=== PATIENT | male | born 1950 | race Caucasian/White ===

== ENCOUNTER 2017-06-05 15:48 | Inpatient (IN) | payer MEDICARE, MEDICAID ==
[2017-06-05 18:09] LABS: #Basophils 0.1 thou/uL (0.0-0.2); #Eosinphils 0.4 thou/uL (0.0-0.7); #Lymphocytes 2.6 thou/uL (1.20-3.40); #Monocytes 0.7 thou/uL (0.11-0.59); #Neutrophils 6.8 thou/uL (1.40-6.50); %Basophils 0.5 % (0.0-1.0); %Lymphocytes 24.4 % (21.0-51.0); %Monocytes 6.2 % (0.0-10.0); %Neutrophils 64.9 % (42.0-75.0); Mean Corpuscular HGB CONC 35.1 g/dL (32.0-36.0); Mean Corpuscular Volume 88.3 fl (80.0-94.0); Mean Platelet Volume 7.8 fL (7.4-10.4); Platelet Count 329 thou/uL (130-400); RBC Distribution Width 12.1 % (11.5-14.5); Red Blood Cell (RBC) Count 4.82 mill/uL (4.70-6.10); White Blood Cell (WBC) Count 10.5 thou/uL (4.8-10.8)
[2017-06-05 18:29] LABS: ALT (SGPT) 11 U/L (8-55); AST (SGOT) 14 U/L (5-34); Albumin 2.4 g/dL (3.4-4.8); Alkaline Phosphatase 120 U/L (40-150); Anion Gap 14 mmol/L (10-20); BUN (Urea Nitrogen) 46 mg/dL (8.4-25.7); Bilirubin, Total 0.2 mg/dL (0.2-1.2); Calc. Creatinine Clearance 0 mL/min (70-130); Calcium 8.2 mg/dL (7.8-10.44); Carbon Dioxide 22 mmol/L (23-31); Chloride 105 mmol/L (98-107); Estimated GFR-MDRD 19; Globulin 3.3 g/dL (2.4-3.5); Glucose 357 mg/dL (80-115); Potassium 4.1 mmol/L (3.5-5.1); Protein, Total 5.7 g/dL (5.8-8.1); Sodium 137 mmol/L (136-145)
[2017-06-05] MEDS ORDERED: Clindamycin/D5W 900 mg/50 ml Premix Bag ONE (19:22)
--- NOTE | 2017-06-05 19:27 | RAD ---
LEFT KNEE FOUR VIEW 06/05/17 HISTORY: Pain. COMPARISON: None. FINDINGS: There is a left below the knee amputation. The margins appear relatively sharp. Extensive vascular ca lcifications. Soft tissue swelling. Moderate osteoarthritic disease. IMPRESSION: Relatively sharp resection margins. No definite evidence of osteomyelitis, although MRI would be pernell mmended if there is clinical concern. POS: [facility]
[2017-06-05] MEDS ORDERED: Vancomycin HCl 1.5 GM in Sodium Chloride 0.9% 250 ML 300 ML IVPB SCH (19:30)
[2017-06-05] MEDS ORDERED: Piperacillin/Tazobactam 4.5 GM in Sodium Chloride 0.9% 100 ML IVPB SCH (19:30)
--- NOTE | 2017-06-05 19:31 | RAD ---
RIGHT TIBIA AND FIBULA TWO VIEW: 06/05/17 HISTORY: Pain and infection. COMPARISON: None.' FINDINGS: Extensive vascular calcifications lower extremity edema. No acute fracture or malalignment. IMPRESSION: Lower extremity swelling as well as what appears to be pitting edema as there is skin irregularly ant erior and posteriorly. Ulceration is also a possibility. POS: [facility]
[2017-06-05] MEDS ORDERED: Acetaminophen 325 MG TAB PO PRN (22:09)
[2017-06-05] MEDS ORDERED: Ondansetron HCl/PF 4 MG/2 ML Vial IVP PRN ×2 (22:09→22:28)
[2017-06-05] MEDS ORDERED: Ondansetron ODT 4 MG TAB SL PRN (22:09)
[2017-06-05] MEDS ORDERED: Calcium Carbonate 500 MG ChewTAB PO PRN (22:28)
[2017-06-05] MEDS ORDERED: Bisacodyl 5 MG TAB PO PRN ×2 (22:28)
[2017-06-05] MEDS ORDERED: Dextrose 5% in Water 1,000 ML IV PRN (22:28)
[2017-06-05] MEDS ORDERED: Diabetic Tussin 200 MG/10 ML UDCUP PO PRN (22:28)
[2017-06-05] MEDS ORDERED: Loratadine 10 MG TAB PO PRN (22:28)
[2017-06-05] MEDS ORDERED: traZODone HCl 50 MG TAB PO PRN (22:28)
[2017-06-05] MEDS ORDERED: Benzonatate 100 MG CAP PO PRN (22:28)
[2017-06-05] MEDS ORDERED: Senokot 8.6 MG TAB PO PRN ×2 (22:28)
[2017-06-05] MEDS ORDERED: Dextrose 50% Abboject 50 ML SYRINGE SLOW IVP PRN (22:28)
[2017-06-05] MEDS ORDERED: Mag-Al 1200 mg/1200 mg/30 ML UDCUP PO PRN (22:28)
[2017-06-05] MEDS ORDERED: traMADol HCl 50 MG TAB PO PRN (22:28)
[2017-06-05] MEDS ORDERED: Nitroglycerin 0.4 MG TAB (25 Tab Bottle) SL PRN (22:28)
[2017-06-05] MEDS ORDERED: cloNIDine 0.1 MG TAB PO PRN (22:28)
[2017-06-05] MEDS ORDERED: Lorazepam 1 MG TAB PO PRN (22:28)
[2017-06-05] MEDS: Sodium Chloride 0.9% 1,000 ML IV SCH (23:17)
[2017-06-05] MEDS: hydrALAZINE 20 MG/ML VIAL SLOW IVP PRN (23:26)
[2017-06-05] MEDS: Insulin Regular 300 UNITS/3 ML VIAL SC PRN (23:54)
[2017-06-06 00:14] VITALS: BMI 35.4
--- NOTE | 2017-06-06 00:19 | CON ---
DATE OF CONSULTATION: 06/05/2017 CONSULTING PHYSICIAN: Dr. Infante. REASON FOR CONSULTATION: Acute kidney injury on chronic kidney disease stage IV. REASON FOR ADMISSION: Leg infection. HISTORY OF PRESENT ILLNESS: This is a 66-year-old male with history of chronic kidney disease, morbi d obesity, hypertension, peripheral vascular disease, and type 2 diabetes, who came to the hospital w ith leg pain and was found to have a nonhealing ulcer. He does have left BKA. No fevers or chills, no nausea or vomiting reported. PAST MEDICAL HISTORY: Positive for chronic kidney disease, coronary artery disease, type 2 diabetes, hypertension, peripheral vascular disease. PAST SURGICAL HISTORY: Left BKA, coronary artery bypass graft. HOME MEDICATIONS: Amlodipine, metoprolol, Nexium, lisinopril, hydralazine, hydrochlorothiazide. ALLERGIES: No known drug allergies. SOCIAL HISTORY: No smoking, alcohol or illicit drugs abuse. FAMILY HISTORY: No history of any kidney disease. REVIEW OF SYSTEMS: The following complete review of systems was negative, unless otherwise mentioned in the HPI or below: Constitutional: Weight loss or gain, ability to conduct usual activities. Skin: Rash, itching. Eyes: Double vision, pain. ENT/Mouth: Nose bleeding, neck stiffness, pain, tenderness. Cardiovascular: Palpitations, dyspnea on exertion, orthopnea. Respiratory: Shortness of breath, wheezing, cough, hemoptysis, fever or night sweats. Gastrointestinal: Poor appetite, abdominal pain, heartburn, nausea, vomiting, constipation, or diarr hea. Genitourinary: Urgency, frequency, dysuria, nocturia. Musculoskeletal: Pain, swelling. Neurologic/Psychiatric: Anxiety, depression. Allergy/Immunologic: Skin rash, bleeding tendency. PHYSICAL EXAMINATION: GENERAL: This is a well-built male in no apparent distress. VITAL SIGNS: Temperature 98.1, pulse 75, respiratory 18, blood pressure 197/94. HEENT: Atraumatic, normocephalic. Oral mucosa is moist. NECK: Supple. CARDIOVASCULAR: S1, S2 heard. Rate and rhythm regular. RESPIRATORY: Clear. GASTROINTESTINAL: Abdomen is soft. MUSCULOSKELETAL: 1+ edema, left BKA. DERMATOLOGIC: Chronic skin lesions with purulent drainage on the right lower extremity. NEUROLOGIC: Alert, awake. PSYCHIATRIC: Mood and affect normal. LABORATORY DATA: Hemoglobin is 15.0, potassium is 4.1, BUN is 46, creatinine is 3.21. ASSESSMENT AND PLAN: 1. Acute kidney injury on chronic kidney stage IV. We will monitor, most likely from sepsis. Mary nue supportive care. 2. Edema, controlled. 3. Hypertension, stable. 4. Anemia, chronic. 5. Obesity. 6. Type 2 diabetes. 7. Continue supportive care, avoid nephrotoxins. We will follow. Thank you for the consult.
[2017-06-06] MEDS ORDERED: Piperacillin/Tazobactam 2.25 GM in Sodium Chloride 0.9% 100 ML IVPB SCH (03:00)
[2017-06-06 04:30] LABS: #Basophils 0.1 thou/uL (0.0-0.2); #Eosinphils 0.5 thou/uL (0.0-0.7); #Lymphocytes 2.3 thou/uL (1.20-3.40); #Monocytes 0.7 thou/uL (0.11-0.59); #Neutrophils 5.7 thou/uL (1.40-6.50); %Basophils 0.9 % (0.0-1.0); %Eosinophils 4.9 % (0.0-10.0); %Lymphocytes 25.4 % (21.0-51.0); %Monocytes 7.2 % (0.0-10.0); %Neutrophils 61.6 % (42.0-75.0); Hemoglobin 13.2 g/dL (14.0-18.0); Mean Corpuscular HGB CONC 35.2 g/dL (32.0-36.0); Mean Corpuscular Hemoglobin 30.9 pg (27.0-31.0); Mean Corpuscular Volume 87.7 fl (80.0-94.0); Mean Platelet Volume 8.2 fL (7.4-10.4); Platelet Count 285 thou/uL (130-400); RBC Distribution Width 12.2 % (11.5-14.5); Red Blood Cell (RBC) Count 4.27 mill/uL (4.70-6.10); White Blood Cell (WBC) Count 9.2 thou/uL (4.8-10.8)
[2017-06-06 04:44] LABS: Anion Gap 11 mmol/L (10-20); BUN (Urea Nitrogen) 43 mg/dL (8.4-25.7); Calc. Creatinine Clearance 37 mL/min (70-130); Calcium 7.8 mg/dL (7.8-10.44); Carbon Dioxide 23 mmol/L (23-31); Chloride 107 mmol/L (98-107); Estimated GFR-MDRD 20; Glucose 233 mg/dL (80-115); Potassium 3.4 mmol/L (3.5-5.1); Sodium 138 mmol/L (136-145)
[2017-06-06 04:48] LABS: Cardiac Risk 8.3 (Less than 4.5)
[2017-06-06] MEDS: Piperacillin/Tazobactam 2.25 GM in Sodium Chloride 0.9% 100 ML IVPB SCH ×3 (05:51→17:57)
[2017-06-06] MEDS: hydrALAZINE 20 MG/ML VIAL SLOW IVP PRN (05:51)
[2017-06-06] MEDS: Insulin Regular 300 UNITS/3 ML VIAL SC PRN ×3 (05:59→21:27)
[2017-06-06] MEDS ORDERED: Clindamycin/D5W 900 MG in Premix Bag 1 BAG IVPB SCH (06:00)
--- NOTE | 2017-06-06 06:32 | HP ---
DATE OF ADMISSION: 06/05/2017 PRIMARY CARE PHYSICIAN: Igor Rivera M.D. CHIEF COMPLAINT: Redness of the left leg stump. HISTORY OF PRESENT ILLNESS: Mr. Ortiz is a pleasant 66-year-old male with past medical history of un controlled diabetes, coronary artery disease, CO, carcinoid tumor as well as a left BKA in 2017, who presented to the emergency room with above-mentioned complaint. History is mainly obtained by the will orozco himself and electronic medical records have been reviewed. The patient underwent a left BKA for diabetic foot infection in 05/[address] Reyna. He reports that he went to get his prosthesis set up yesterday, but was sent back because his left lo wer extremity stump was red. The patient himself cannot feel any pain and called his primary care ph ysician this morning who told him to come to the emergency room. In the emergency room, he was found to have left lower extremity erythema and also right lower extrem ity ashby wounds. He reported that his cat has scratched him about 3 months ago and since then the [facility] lower extremity wounds have gotten worse. His also thinks that he might have a piece of gla ss stuck in his right foot. He underwent x-rays of the tibia and fibula of the right leg, which shows soft tissue swelling with p ossible ulceration, but no definitive fractures. The knee and stump x-ray of the left lower extremit y is negative for any significant evidence of osteomyelitis. He was treated empirically with IV anti biotics, namely vancomycin, Zosyn, and clindamycin and is now being admitted for possible stump infec tion and cellulitis as well as right lower extremity ulcers and wound infection. Cultures are obtain ed in the emergency room. He is otherwise hemodynamically stable. He also endorses diarrhea for the last 2 days. He takes Pepto-Bismol on a daily basis. He denies an y blood in his stools. He denies any nausea, vomiting or abdominal pain. He denies any similar symp toms in his . No fever or chills. No recent antibiotic use. PAST MEDICAL HISTORY: 1. Diabetes mellitus type 2. 2. Coronary artery disease. 3. Hypertension. 4. Dyslipidemia. 5. History of skin cancer on the left lower extremity, status post surgery. 6. Chronic kidney disease stage 3. 7. Peripheral vascular disease with gangrene of the left foot and status post amputation with a vent ral infection of the left leg, status post left BKA. PAST SURGICAL HISTORY: 1. CABG. 2. Left toe amputation in 2012. 3. Left leg amputation in 2017. 4. Skin cancer removal, left leg. ALLERGIES: No known medication allergies. CURRENT MEDICATIONS: The patient does not remember any of the home medication. He does report that he takes insulin in the morning, possibly Levemir. He also takes Nexium for heartburn. SOCIAL HISTORY: He is and lives with his who is also an amputee for her toes. They hav e somewhat difficult time taking care of each other. He has 2 kids who do not live locally. No hist ory of drug, tobacco or alcohol abuse. 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 FAMILY HISTORY: Significant for mother with brain cancer. Father with emphysema. REVIEW OF SYSTEMS: The following complete review of systems was negative, unless otherwise mentioned in the HPI or below: Constitutional: Weight loss or gain, ability to conduct usual activities. Skin: Rash, itching. Eyes: Double vision, pain. ENT/Mouth: Nose bleeding, neck stiffness, pain, tenderness. Cardiovascular: Palpitations, dyspnea on exertion, orthopnea. Respiratory: Shortness of breath, wheezing, cough, hemoptysis, fever or night sweats. Gastrointestinal: Poor appetite, abdominal pain, heartburn, nausea, vomiting, constipation, or diarr hea. Genitourinary: Urgency, frequency, dysuria, nocturia. Musculoskeletal: Pain, swelling. Neurologic/Psychiatric: Anxiety, depression. Allergy/Immunologic: Skin rash, bleeding tendency. LABORATORY DATA X-RAY FINDINGS: CBC is rather unremarkable. His WBC count and neutrophil percentage is within normal limits. Serum chemistries show BUN of 46, creatinine of 3.21 with baseline creatin ine anywhere from 2-2.5. His blood sugar is 357. C-reactive protein mild abnormal at 0.54. ESR preston vated at 49. X-ray of the knee on the left and the right lower leg extremity as per my review as per the HPI. PHYSICAL EXAMINATION: VITAL SIGNS: Most recent vital signs include temperature 99.2, pulse of 81, respirations 18, saturat ing 99% on room air, blood pressure 196/78. GENERAL: No acute distress. He appears disheveled and unkempt. Otherwise, very pleasant, awake, al ert, oriented x3. HEENT: Mucous membranes are slightly dry. No oropharyngeal exudate or erythema. Head is normocepha lic, atraumatic. Pupils equal, reactive to light and accommodation. Extraocular movement intact. NECK: Supple without any lymphadenopathy, JVD or bruit. CHEST: Clear to auscultation without any wheezing. ABDOMEN: Soft, nontender, nondistended with positive bowel sounds. No guarding, rebound or rigidity . EXTREMITY: Evaluation, his left lower extremity stump is closed. The surrounding skin around the in cision is erythematous and somewhat warm. Right lower extremity show significant discoloration with multiple shallow ulcers. I would defer to the wound pictures as entered in the EMR by the nursing st aff. NEUROLOGIC: Nonfocal. PSYCHIATRIC: Normal affect. SKIN: Multiple skin discoloration in the left lower extremity. IMPRESSION AND PLAN: 1. Left stump cellulitis and right lower extremity cat scratch wounds with nonhealing. The patient will be started on broad spectrum IV antibiotics. We will consult Infectious Disease and General Ervin orlando for further recommendations. Obtain lower extremity arterial Doppler for the right lower extrem ity. Prior to amputation. His left lower extremity arterial Doppler was done, which showed severe p eripheral vascular disease. Most likely the patient has vascular disease in the right lower extremit y as well. At this time, he will be treated as the sepsis. We will follow the culture results. Mos t likely, he would need some sort of incision and drainage at the very least or maybe amputation at t he worst of the right lower extremity wounds too. 2. Sepsis secondary to #1. Continue IV fluids and IV antibiotics. Obtain stool sample to rule out gastroenteritis and Clostridium difficile. 3. Acute on chronic renal insufficiency. Nephrology has been consulted and his model and dye person has see n the patient. Continue with IV fluids and monitor renal function. This might be prohibitive for an y angiogram if necessary. Monitor and avoid any nephrotoxic medications for now. 4. Diabetes mellitus with uncontrolled hyperglycemia. We will put him on Levemir b.i.d. with insuli n sliding scale and can try to confirm the dose of his home medications. 5. Hypertensive urgency. The patient does not remember any of his home medications. At the last di scharge, he was taking amlodipine as well as metoprolol. We will restart those and confirm the home medications in the morning for correct dosages. Use p.r.n. antihypertensives for now. 6. History of gastroesophageal reflux. We will restart his proton pump inhibitor. 7. Gout. The patient currently does not have any flare up. 8. Severe peripheral vascular disease. It is unclear if the patient is on any antiplatelet medicati ons at all. This will need to be confirmed in the morning. He might benefit from starting him on as pirin once his renal function recovers. 9. History of coronary artery disease, status post coronary artery bypass graft. Restart his beta b locker. 10. History of dyslipidemia. Once again, I am not sure if the patient is on any statin or not. It is not listed in his discharge medications from his last hospitalization, but that was all more than a year ago. We will recheck his lipid panel and add statin as needed. 11. Code status: FULL CODE. Discussed with the patient. 12. Deep venous thrombosis and gastrointestinal prophylaxis in the form of subcutaneous heparin and proton pump inhibitor. Avoid sequential compression devices. DISPOSITION: Mr. Ortiz is currently being admitted to the hospital for left stump infection and cell ulitis with right lower extremity infection as well. ESTIMATED LENGTH OF STAY: Multiple midnights, definitely more than 2-3 midnights. Further management will depend upon his clinical course.
[2017-06-06] MEDS: Amlodipine 5 MG TAB PO SCH ×2 (08:54→20:39)
[2017-06-06] MEDS: Famotidine 20 MG TAB PO SCH ×2 (08:55→20:39)
[2017-06-06] MEDS: Heparin 5,000 UNITS/ML VIAL SC SCH ×2 (08:55→20:40)
[2017-06-06] MEDS: Metoprolol Tartrate 50 MG TAB PO SCH ×2 (08:55→20:39)
[2017-06-06] MEDS ORDERED: Insulin Detemir 100 UNITS/ML 15 UNITS in Pre-Filled Syringe 1 EACH SC SCH ×2 (09:00→21:00)
--- NOTE | 2017-06-06 10:42 | PDOC.PN ---
- Subjective Encounter Start Date: 06/06/17 Encounter Start Time: 09:00 -: old records requested/rev Patient seen and examined. No new complaints. No overnight events - Objective MAR Reviewed: Yes Vital Signs & Weight: Vital Signs (12 hours) Temp Pulse Pulse Resp BP BP BP 06/06/17 08:54 94 182/96 H 06/06/17 07:45 92 179/82 H 06/06/17 05:51 94 182/96 H 06/06/17 05:25 97.7 F 97 18 06/06/17 05:07 98.2 F 89 20 06/06/17 00:56 166/89 H 06/06/17 00:00 97.7 F 68 20 06/05/17 23:26 79 175/90 H BP BP Pulse Ox 06/06/17 08:54 06/06/17 07:45 06/06/17 05:51 06/06/17 05:25 182/96 H 99 06/06/17 05:07 168/91 H 96 06/06/17 00:56 06/06/17 00:00 99 06/05/17 23:26 Weight Weight 246 lb 9.6 oz Result Diagrams: 06/06/17 03:32 06/06/17 03:32 Additional Labs: Accuchecks 06/06/17 06/05/17 05:57 22:40 POC Glucose 226 H 300 H Radiology Reviewed by me: Yes Phys Exam - Physical Examination Constitutional: NAD HEENT: PERRLA, moist MMs, sclera anicteric Neck: no JVD, supple Respiratory: no wheezing, no rales, no rhonchi Cardiovascular: RRR, no significant murmur, no rub Gastrointestinal: soft, non-tender, no distention, positive bowel sounds Musculoskeletal: no edema, pulses present left BKA, stump erythema, right LE erythema and wounds Neurological: non-focal, normal sensation Lymphatic: no nodes Psychiatric: normal affect Skin: no rash, normal turgor Dx/Plan (1) Acute worsening of stage 3 chronic kidney disease Code(s): N18.3 - CHRONIC KIDNEY DISEASE, STAGE 3 (MODERATE) Status: Acute (2) Cellulitis of right lower extremity Code(s): L03.115 - CELLULITIS OF RIGHT LOWER LIMB Status: Acute (3) History of left below knee amputation Code(s): Z89.512 - ACQUIRED ABSENCE OF LEFT LEG BELOW KNEE Status: Acute (4) Infection of left below knee amputation Code(s): T87.44 - INFECTION OF AMPUTATION STUMP, LEFT LOWER EXTREMITY Status: Acute (5) CAD (coronary artery disease) Code(s): I25.10 - ATHSCL HEART DISEASE OF [place] CORONARY ARTERY W/O ANG PCTRS Status: Chronic Qualifiers: (6) DM type 2 (diabetes mellitus, type 2) Status: Chronic Qualifiers: (7) Dyslipidemia Code(s): E78.5 - HYPERLIPIDEMIA, UNSPECIFIED Status: Chronic (8) HTN (hypertension) Code(s): I10 - ESSENTIAL (PRIMARY) HYPERTENSION Status: Chronic Qualifiers: (9) Obesity (BMI 30-39.9) Code(s): E66.9 - OBESITY, UNSPECIFIED Status: Chronic (10) PVD (peripheral vascular disease) Code(s): I73.9 - PERIPHERAL VASCULAR DISEASE, UNSPECIFIED Status: Chronic - Plan cont current plan of care, continue antibiotics * continue gentle IVF * continue vancomycin and zosyn * wound care * home medication reconciled * medication reviewed as below * symptomatic treatment * US leg pending result. Review of Systems - Review of Systems ENT: negative: Ear Pain, Ear Discharge, Nose Pain, Nose Discharge, Nose Congestion, Mouth Pain, Mouth Swelling, Throat Pain, Throat Swelling, Other Respiratory: negative: Cough, Dry, Shortness of Breath, Hemoptysis, SOB with Excertion, Pleuritic Pain, Sputum, Wheezing Cardiovascular: negative: chest pain, palpitations, orthopnea, paroxysmal nocturnal dyspnea, edema, light headedness, other Gastrointestinal: negative: Nausea, Vomiting, Abdominal Pain, Diarrhea, Constipation, Melena, Hematochezia, Other Genitourinary: negative: Dysuria, Frequency, Incontinence, Hematuria, Retention , Other Musculoskeletal: negative: Neck Pain, Shoulder Pain, Arm Pain, Back Pain, Hand Pain, Leg Pain, Foot Pain, Other Skin: negative: Rash, Lesions, Rajan, Bruising, Other - Medications/Allergies Allergies/Adverse Reactions: Allergies Allergy/AdvReac Type Severity Reaction Status Date / Time No Known Drug Allergies Allergy Verified 12/02/12 22:01 Medications: Current Medications Al Hydroxide/Mg Hydroxide (Maalox) 30 ml PO Q6H PRN PRN Reason: Heartburn or Indigestion Amlodipine Besylate (Norvasc) 5 mg PO BID [facility] Last Admin: 06/06/17 08:54 Dose: 5 mg Benzonatate (Tessalon) 100 mg PO Q4H PRN PRN Reason: Cough Bisacodyl (Dulcolax) 10 mg PO DAILYPRN PRN PRN Reason: Constipation Calcium Carbonate (Tums) 1,000 mg PO Q4H PRN PRN Reason: Heartburn or Indigestion Clonidine (Catapres) 0.1 mg PO Q4H PRN PRN Reason: Systolic BP > 160 Dextrose/Water (Dextrose 50%) 25 gm SLOW IVP PRN PRN PRN Reason: Hypoglycemia Famotidine (Pepcid) 20 mg PO BID [facility] Last Admin: 06/06/17 08:55 Dose: 20 mg Glucagon (Glucagon) 1 mg IM PRN PRN PRN Reason: Hypoglycemia Guaifenesin (Robitussin Sf) 200 mg PO Q4H PRN PRN Reason: Cough Heparin Sodium (Porcine) (Heparin) 5,000 units SC BID [facility] Last Admin: 06/06/17 08:55 Dose: Not Given Hydralazine HCl (Apresoline) 10 mg SLOW IVP Q4H PRN PRN Reason: sbp>170 Last Admin: 06/06/17 05:51 Dose: 10 mg Dextrose/Water (D5w) 1,000 mls @ 0 mls/hr IV .Q0M PRN; As Directed PRN Reason: Hypoglycemia Sodium Chloride (Normal Saline 0.9%) 1,000 mls @ 75 mls/hr IV .[id number] [facility] Last Admin: 06/05/17 23:17 Dose: 1,000 mls Piperacillin Sod/Tazobactam (Sod 2.25 gm/ Sodium Chloride) 100 mls @ 200 mls/ hr IVPB Q6HR [facility] Last Admin: 06/06/17 05:51 Dose: 100 mls Vancomycin HCl 1.25 gm/ Sodium (Chloride) 250 mls @ 166.667 mls/hr IVPB 0100 [facility] Insulin Detemir 15 units/ (Miscellaneous Medication) 0.15 mls @ 0 mls/hr SC HS [facility] Insulin Detemir 15 units/ (Miscellaneous Medication) 0.15 mls @ 0 mls/hr SC QAM [facility] Last Admin: 06/06/17 08:56 Dose: Not Given Insulin Human Regular (Humulin R) 0 units SC .MODERATE SLIDING SC PRN PRN Reason: Moderate Correctional Scale Last Admin: 06/06/17 05:59 Dose: 4 unit Insulin Human Regular (Humulin R) 0 units SC .BEDTIME SLIDING SC PRN PRN Reason: Bedtime Correctional Scale Last Admin: 06/05/17 23:54 Dose: 3 unit Loratadine (Claritin) 10 mg PO DAILYPRN PRN PRN Reason: Sinus Symptoms Lorazepam (Ativan) 1 mg PO Q4H PRN PRN Reason: Anxiety/Agitation Metoprolol Tartrate (Lopressor) 50 mg PO BID [facility] Last Admin: 06/06/17 08:55 Dose: 50 mg Nitroglycerin (Nitrostat) 0.4 mg SL Q5MIN PRN PRN Reason: Chest Pain Ondansetron HCl (Zofran) 4 mg IVP Q6H PRN PRN Reason: Nausea/Vomiting Senna (Senokot) 2 tab PO HSPRN PRN PRN Reason: Constipation Sodium Chloride (Flush - Normal Saline) 10 ml IVF Q12HR [facility] Last Admin: 06/06/17 08:57 Dose: Not Given Sodium Chloride (Flush - Normal Saline) 10 ml IVF PRN PRN PRN Reason: Saline Flush Tramadol HCl (Ultram) 50 mg PO Q4H PRN PRN Reason: Moderate Pain (4-6) Trazodone HCl (Desyrel) 50 mg PO HSPRN PRN PRN Reason: Insomnia
--- NOTE | 2017-06-06 10:53 | ULT ---
ULTRASOUND ARTERIAL DOPPLER LOWER EXTREMITY: HISTORY: Non-healing wounds. COMPARISON: Ultrasound arterial Doppler lower extremity 05/10/16. FINDINGS: The right lower extremity arterial system was interrogated. The common femoral artery peak systolic velocity 104 cm/s triphasic waveform. The deep femoral artery peak systolic velocity is 89 cm/s with biphasic waveform. Proximal femoral artery peak systolic velocity is 120 cm/s triphasic waveform. Mid femoral artery peak systolic velocity is 94 cm/s triphasic waveform. The distal femoral artery p eak systolic velocity is 165 cm/s with monophasic waveform. The popliteal artery peak systolic veloc ity is 62 cm/s with monophasic waveform. Anterior tibial artery peak systolic velocity is 149 cm/s w ith monophasic waveform. Posterior cerebral artery peak systolic velocity is 47 cm/s monophasic wave form. Dorsalis pedis peak systolic velocity is 15 cm/s monophasic waveform with parvus tardus. IMPRESSION: 1. Abnormal peak systolic velocity within the distal femoral artery with monophasic waveform due to trifurcation suggesting extensive vascular disease. 2. Abnormal elevation of the anterior tibial artery peak systolic velocity suggesting hemodynamicall y significant stenosis. 3. Parvus tardus waveform dorsalis pedis artery. POS: [facility]
[2017-06-06] MEDS: Sodium Chloride 0.9% 1,000 ML IV SCH (12:42)
--- NOTE | 2017-06-06 13:22 | PQF ---
DATE: 06-06-17 ATTN: DR. CHARLEY PARISI Please exercise your independent, professional judgment in responding to the clarification form. Clinical indicators are provided on the bottom of this form for your review Please check appropriate box(s) to clarify if the following diagnosis has been ruled in or ruled out: SEPSIS ___ruled in [ x ] Ruled in diagnosis [ x ] Continue to treat [ ] Resolved [ ] Ruled out diagnosis [ ] Other diagnosis [ ] Unable to determine In addition, please specify: Present on Admission (POA): [ x ] Yes [ ] No [ ] Unable to determine For continuity of documentation, please document condition throughout progress notes and discharge summary. Thank You. CLINICAL INDICATORS - SIGNS / SYMPTOMS / LABS H&P: SEPSIS SECONDARY TO #1 ( LEFT STUMP CELLULITIS AND RIGHT LOWER EXTREMITY CAT SCRATCH WOUNDS WITH NONHEALING. CONTINUE IV FLUIDS AND IV ANTIBIOTICS. CRP 3-18: 0.54 RISK FACTORS: SEPSIS SECONDARY TO #1 ( LEFT STUMP CELLULITIS AND RIGHT LOWER EXTREMITY CAT SCRATCH WOUNDS WITH NONHEALING. TREATMENTS: H&P: CONTINUE IV FLUIDS AND IV ANTIBIOTICS. (MAR) ZOSYN, NS IVF, CLEOCIN, VANCOMYCIN (This form is maintained as a part of the permanent medical record) 2014 [employer] All Rights Reserved [email or web address] Office: [phone] [facility] CENTERLindsey
--- NOTE | 2017-06-06 13:36 | CON ---
DATE OF CONSULTATION: 06/06/2017 REASON FOR CONSULTATION: Inflammatory changes right and left lower extremities. 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 Since then, the patient has had attempts at shrinking the left stump for fitting of a prosthesis which has been taking a quite long time. The patient has been wearing shrinking devices such as rubber sock for the past 2-3 months and the extremity has progressively decreased in size; however, he has developed complications associated with the stumps sock. The patient had been using a rubber sock, it is not clear what kind of tissue he was putting in between the skin, and the rubber component and has developed blistering and redness, probably from this pressure and irritation from the material present in the stump sock. He also was scratched by his cat and developed cellulitis and ulcerations in the right lower extremity, localized in the mid anterior portion of the right leg with some areas of extensive ulceration. The patient is admitted and is currently on broad spectrum coverage. REVIEW OF SYSTEMS: He denies headaches, visual symptoms, sore throat, odynophagia, dysphagia, no cough or sputum production, no chest pain, no back pain. No abdominal pain, no diarrhea, no genitourinary symptoms, no joint symptoms. No neurological symptoms. PAST MEDICAL HISTORY: Type 2 diabetes, neuropathy, coronary artery disease, hypertension, hyperlipidemia, skin cancer, ischemia with gangrene left lower extremity with a progressive infection resulting in the left BKA recently, renal insufficiency stage 3 to 4, peripheral vascular disease. PAST SURGICAL HISTORY: Also coronary bypass graft surgery. ALLERGIES: None. MEDICATIONS: Maalox, Norvasc, Tessalon, Dulcolax, Tums, Catapres, Pepcid, Robitussin, metoprolol, Zosyn and vancomycin. 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 Former smoker , , lives with . FAMILY HISTORY: COPD and brain cancer. PHYSICAL EXAMINATION: VITAL SIGNS: T-max 98.2, blood pressure 170/82, pulse 94, respirations 18, O2 saturation 98%. GENERAL: Appears no distress. SKIN: Shows the areas of erythema in the right anterior leg with surrounding fairly deep ulcerations with yellow necrotic tissue at the base. The largest one measures about 2.5 cm irregular shaped. He has a few other ones in the front and 1 in the back in the calf skin area. The left stump site with a pink colored erythema with superficial blisters which have been unroofed. No deep ulceration or bone exposure noted. The patient has dermatosclerosis in the right lower extremity, skin with onychodystrophy. No lymphadenopathy. HEENT: Ocular movements conjugate. Oral cavity with only few remaining teeth stubs. NECK: Supple, no jugular vein distention. LUNGS: With symmetric clear breath sounds. HEART: S1, S2, regular rate. No S3, S4. ABDOMEN: Soft, not distended or tender. No ascites. No bladder distention. : No genital abnormalities. EXTREMITIES: Pulses are diminished in dorsalis pedis, 1+ in popliteal right side. The strength in upper and lower extremities is preserved. NEUROLOGIC: Cognitive function appears to be intact. LABORATORY DATA: White cell count 10.5, hemoglobin 15, platelets 229, normal differential. Sodium 137, creatinine 3.21, which is a bit higher than his baseline. Liver profile normal. Albumin 2.4. No microbiology specimen obtained at this time. There is a tibia fibula x-ray obtained with edema, calcifications and ulcerations. ASSESSMENT: 1. Peripheral vascular disease. 2. Prior recent left [id number]-[id number] amputation with problems shrinking the stump and likely pressure damage from stumps rubber sock associated with some element of dermatitis as well and blistering. 3. Cat scratch with cellulitis right lower extremity. DISCUSSION: Organisms involving cat scratch associated inflamm processes almost 100% at time of are secondary to Pasteurella multocida infection. Treatment can include Zosyn, quinolones or Unasyn or 3rd gen cephalosporins.. Discontinue vancomycin. Will need to wound care for the ulcerations in the right leg. The left BKA stump inflammatory process is most likely secondary to pressure injury from the rubber soft. It is not clear if he is using any material to separate the skin from the rubber component of the sock. He will need to address management of this finding with the [employer] company that is fitting his prosthesis. Once there is further improvement in inflammatory changes right leg then the patient can be transitioned to oral Augmentin for discharge planning. Consider vascular evaluation of the right leg. MTDD
--- NOTE | 2017-06-06 16:24 | PRG ---
DATE OF SERVICE: 06/06/2017 SUBJECTIVE: Patient was seen and examined at bedside and overnight events noted. Patient denies any shortness of breath or chest pain or palpitation. No history of nausea or vomiting or diarrhea or f ever or chills or cramps. OBJECTIVE: GENERAL: This is an obese male, in no apparent distress. VITAL SIGNS: Temperature 97.8, pulse 69, respiratory 18, blood pressure 167/93. HEENT: Atraumatic, normocephalic. Oral mucosa is moist. NECK: Supple. CARDIOVASCULAR: S1, S2 heard. Rate and rhythm regular. RESPIRATORY: Clear to auscultation. GASTROINTESTINAL: Abdomen is soft. MUSCULOSKELETAL: No tenderness, no edema. DERMATOLOGIC: No skin rash. NEUROLOGIC: Alert and awake and oriented x3. No focal neurologic deficits. Moving all the extremit ies. PSYCHIATRIC: Mood and affect normal. LABORATORY DATA: Potassium 3.4, BUN 43, creatinine is 3.07. ASSESSMENT AND PLAN: 1. Acute kidney injury on chronic kidney disease stage IV. Renal function is improving. Continue s upportive care. 2. Edema, controlled. 3. Hypertension. We will monitor. 4. Anemia, chronic. 5. Obesity. 6. Type 2 diabetes. 7. Continue supportive care. Avoid nephrotoxins. We will monitor renal function.
--- NOTE | 2017-06-06 17:19 | HP ---
HISTORY OF PRESENT ILLNESS: Jovanny Ortiz is a 66-year-old male patient well known to me. I have seen him previously and performed a left below the knee amputation for a foreign body in his foot that re sulted in severe infection extending up to his ankle. This amputation was performed on 05/12/2016. The patient is admitted because of cellulitis over his amputation stump and venous stasis changes in his right leg. His cat scratched him resulting in cellulitis of his right leg. They would not put h is prosthesis on his left BKA stump because of cellulitis in his stump. He is on intravenous antibio tics. Dr. Orellana has been consulted. ALLERGIES: None. TOBACCO: Minimal use. ALCOHOL: None. MEDICATIONS: Metoprolol, lisinopril, hydralazine, amlodipine, allopurinol, Nexium, colchicine, Levem ir, hydrochlorothiazide. He is on intravenous antibiotics. PAST SURGICAL HISTORY: Coronary artery bypass grafting, left radial artery use, saphenous vein after suffering myocardial infarction three years ago in [place]. 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 This sarco ma was initially removed 6-10 years ago and then recurred. He had resection in his left leg and calf area. He had amputation of the left great and second toe, 2012. On 06/2012, I performed amputation of his right first and second toes and metatarsals. PAST MEDICAL HISTORY: 1. Diabetes mellitus type. 2. History of left leg sarcoma. 3. Obesity. 4. Metabolic syndrome. 5. Hypertension. 6. Gout. 7. Status post left BKA. 8. Venous stasis disease, right leg. 9. Poor hygiene at home. 10. History of sarcoma resection, recurrence as noted above. 11. Left leg PAD, palpable femoral and popliteal pulses, nonpalpable pedal pulses. 12. Chronic kidney disease. PHYSICAL EXAMINATION: VITAL SIGNS: 5 feet 10 inches, 246 pounds, 35 BMI, 97.69, 167/93. HEAD, EARS, EYES, NOSE, AND THROAT: Unremarkable. LUNGS: Clear to auscultation. CARDIAC: Regular rate and rhythm without murmur or gallop. ABDOMEN: Obese. EXTREMITIES: Palpable femoral pulses bilaterally. Left below knee amputation stump and wound intact . There are some redness and cellulitis, but no indication of fluctuance or abscess to be drained. Over the right leg, he has severe chronic venous stasis changes with edema to his leg. He does not h ave a compression dressing on. He has two foci of necrotic eschar, approximately 3 x 1.5 cm. There were no fluctuant areas. ASSESSMENT AND PLAN: 1. Cellulitis of left below knee amputation stump and right venous stasis ulcers in leg. No indicat ion for surgical intervention. We would resume his diet. Continue wound care, right leg. We would use Santyl for enzymatic debridement with a focal eschar areas. We would provide compression dressin gs sequential foot to knee and elevation for his chronic venous stasis changes. Protect his right he el from neuropathic ulcerations and decubiti. At this point, there is no surgical indication. I bryan l see him as needed this hospitalization. He can follow up in my office as needed. Please call if n eeded. 2. Chronic kidney disease. Preserve arms for dialysis access. He has had radial artery harvest ruy ing his left arm less desirous for dialysis access. We would avoid IVs above his wrist. 3. 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 4. Diabetes mellitus. 5. Hypertension. 6. Obesity. 7. Metabolic syndrome.
[2017-06-07] MEDS: Piperacillin/Tazobactam 2.25 GM in Sodium Chloride 0.9% 100 ML IVPB SCH ×5 (00:36→20:00)
[2017-06-07] MEDS ORDERED: Vancomycin HCl 1.25 GM in Sodium Chloride 0.9% 250 ML 250 ML IVPB SCH (01:00)
[2017-06-07] MEDS: hydrALAZINE 20 MG/ML VIAL SLOW IVP PRN (02:14)
[2017-06-07] MEDS: Sodium Chloride 0.9% 1,000 ML IV SCH ×2 (02:19→14:39)
[2017-06-07] MEDS: Insulin Regular 300 UNITS/3 ML VIAL SC PRN ×3 (06:02→20:02)
[2017-06-07] MEDS ORDERED: Ondansetron ODT 4 MG TAB PO PRN (07:28)
[2017-06-07] MEDS ORDERED: Eucerin (Mineral Oil/Petrolatum,White) 30 gm Jar TOP PRN (07:28)
[2017-06-07] MEDS ORDERED: Chloraseptic Spray 180 ml Bottle PO PRN (07:28)
[2017-06-07] MEDS ORDERED: HYDROcodone/Acetaminophen 5/325 mg Tablet PO PRN (07:28)
[2017-06-07] MEDS ORDERED: Acetaminophen 325 MG TAB PO PRN (07:28)
[2017-06-07] MEDS ORDERED: Milk Of Magnesia 30 ML UDCUP PO PRN (07:28)
[2017-06-07] MEDS ORDERED: Artificial Tears 18 DROP/0.9 ML EA EYE PRN (07:28)
[2017-06-07] MEDS: Heparin 5,000 UNITS/ML VIAL SC SCH ×2 (08:06→20:01)
[2017-06-07] MEDS: Famotidine 20 MG TAB PO SCH (08:07)
[2017-06-07] MEDS: Amlodipine 5 MG TAB PO SCH ×2 (08:07→20:00)
[2017-06-07] MEDS: Metoprolol Tartrate 50 MG TAB PO SCH ×2 (08:07→20:00)
[2017-06-07] MEDS: Insulin Detemir 100 UNITS/ML 20 UNITS in Pre-Filled Syringe 1 EACH SC SCH ×2 (08:09→20:01)
--- NOTE | 2017-06-07 09:24 | PDOC.PN ---
- Subjective Encounter Start Date: 06/07/17 Encounter Start Time: 08:00 Patient seen and examined. No new complaints. No overnight events - Objective MAR Reviewed: Yes Vital Signs & Weight: Vital Signs (12 hours) Temp Pulse Resp BP BP BP BP 06/07/17 08:07 75 170/85 H 06/07/17 08:00 97.1 F L 80 16 179/81 H 06/07/17 04:00 97.7 F 75 18 177/87 H 06/07/17 03:15 165/79 H 06/07/17 02:14 64 185/94 H 06/07/17 00:00 97.7 F 64 18 174/80 H Pulse Ox 06/07/17 08:07 06/07/17 08:00 100 06/07/17 04:00 98 06/07/17 03:15 06/07/17 02:14 06/07/17 00:00 99 Weight Admit Weight 246 lb 9.6 oz Weight 246 lb 9.6 oz Result Diagrams: 06/06/17 03:32 06/06/17 03:32 Additional Labs: Accuchecks 06/07/17 06/06/17 06/06/17 05:06 20:23 16:46 POC Glucose 205 H 266 H 290 H 06/06/17 11:20 POC Glucose 231 H Phys Exam - Physical Examination Constitutional: NAD HEENT: PERRLA, moist MMs, sclera anicteric Neck: no JVD, supple Respiratory: no wheezing, no rales, no rhonchi Cardiovascular: RRR, no significant murmur, no rub Gastrointestinal: soft, non-tender, no distention, positive bowel sounds right LE cellulitis, left BKA Neurological: non-focal, normal sensation, moves all 4 limbs Psychiatric: normal affect, A&O x 3 Skin: no rash, normal turgor Dx/Plan (1) Acute worsening of stage 3 chronic kidney disease Code(s): N18.3 - CHRONIC KIDNEY DISEASE, STAGE 3 (MODERATE) Status: Acute (2) Cellulitis of right lower extremity Code(s): L03.115 - CELLULITIS OF RIGHT LOWER LIMB Status: Acute (3) History of left below knee amputation Code(s): Z89.512 - ACQUIRED ABSENCE OF LEFT LEG BELOW KNEE Status: Acute (4) Infection of left below knee amputation Code(s): T87.44 - INFECTION OF AMPUTATION STUMP, LEFT LOWER EXTREMITY Status: Acute (5) CAD (coronary artery disease) Code(s): I25.10 - ATHSCL HEART DISEASE OF [place] CORONARY ARTERY W/O ANG PCTRS Status: Chronic Qualifiers: (6) DM type 2 (diabetes mellitus, type 2) Status: Chronic Qualifiers: (7) Dyslipidemia Code(s): E78.5 - HYPERLIPIDEMIA, UNSPECIFIED Status: Chronic (8) HTN (hypertension) Code(s): I10 - ESSENTIAL (PRIMARY) HYPERTENSION Status: Chronic Qualifiers: (9) Obesity (BMI 30-39.9) Code(s): E66.9 - OBESITY, UNSPECIFIED Status: Chronic (10) PVD (peripheral vascular disease) Code(s): I73.9 - PERIPHERAL VASCULAR DISEASE, UNSPECIFIED Status: Chronic - Plan cont current plan of care, continue antibiotics * medication reviewed as below * symptomatic treatment * continue current IV antibiotics as ordered. * add lipitor 40 mg HS * repeat labs tomorrow Review of Systems - Review of Systems Constitutional: negative: fever, chills, sweats, weakness, malaise, other Eyes: negative: Pain, Vision Change, Conjunctivae Inflammation, Eyelid Inflammation, Redness, Other ENT: negative: Ear Pain, Ear Discharge, Nose Pain, Nose Discharge, Nose Congestion, Mouth Pain, Mouth Swelling, Throat Pain, Throat Swelling, Other Respiratory: negative: Cough, Dry, Shortness of Breath, Hemoptysis, SOB with Excertion, Pleuritic Pain, Sputum, Wheezing Cardiovascular: negative: chest pain, palpitations, orthopnea, paroxysmal nocturnal dyspnea, edema, light headedness, other Gastrointestinal: negative: Nausea, Vomiting, Abdominal Pain, Diarrhea, Constipation, Melena, Hematochezia, Other Genitourinary: negative: Dysuria, Frequency, Incontinence, Hematuria, Retention , Other Musculoskeletal: negative: Neck Pain, Shoulder Pain, Arm Pain, Back Pain, Hand Pain, Leg Pain, Foot Pain, Other Skin: negative: Rash, Lesions, Rajan, Bruising, Other - Medications/Allergies Allergies/Adverse Reactions: Allergies Allergy/AdvReac Type Severity Reaction Status Date / Time No Known Drug Allergies Allergy Verified 12/02/12 22:01 Medications: Current Medications Acetaminophen (Tylenol) 650 mg PO Q4H PRN PRN Reason: Headache/Fever or Mild Pain Hydrocodone Bitart/Acetaminophen (Roggen 5/325) 1 tab PO Q4H PRN PRN Reason: Moderate Pain (4-6) Al Hydroxide/Mg Hydroxide (Maalox) 30 ml PO Q6H PRN PRN Reason: Heartburn or Indigestion Amlodipine Besylate (Norvasc) 5 mg PO BID [facility] Last Admin: 06/07/17 08:07 Dose: 5 mg Artificial Tears (Tears Naturale) 0 drop EA EYE PRN PRN PRN Reason: Dry Eyes Atorvastatin Calcium (Lipitor) 40 mg PO HS [facility] Benzonatate (Tessalon) 100 mg PO Q4H PRN PRN Reason: Cough Bisacodyl (Dulcolax) 10 mg PO DAILYPRN PRN PRN Reason: Constipation Calcium Carbonate (Tums) 1,000 mg PO Q4H PRN PRN Reason: Heartburn or Indigestion Clonidine (Catapres) 0.1 mg PO Q4H PRN PRN Reason: Systolic BP > 160 Dextrose/Water (Dextrose 50%) 25 gm SLOW IVP PRN PRN PRN Reason: Hypoglycemia Famotidine (Pepcid) 20 mg PO DAILY [facility] Last Admin: 06/07/17 08:07 Dose: 20 mg Glucagon (Glucagon) 1 mg IM PRN PRN PRN Reason: Hypoglycemia Guaifenesin (Robitussin Sf) 200 mg PO Q4H PRN PRN Reason: Cough Heparin Sodium (Porcine) (Heparin) 5,000 units SC BID [facility] Last Admin: 06/07/17 08:06 Dose: 5,000 units Hydralazine HCl (Apresoline) 10 mg SLOW IVP Q4H PRN PRN Reason: sbp>170 Last Admin: 06/07/17 02:14 Dose: 10 mg Dextrose/Water (D5w) 1,000 mls @ 0 mls/hr IV .Q0M PRN; As Directed PRN Reason: Hypoglycemia Sodium Chloride (Normal Saline 0.9%) 1,000 mls @ 75 mls/hr IV .[id number] [facility] Last Admin: 06/07/17 02:19 Dose: Not Given Piperacillin Sod/Tazobactam (Sod 2.25 gm/ Sodium Chloride) 100 mls @ 200 mls/ hr IVPB Q6HR [facility] Last Admin: 06/07/17 05:46 Dose: 100 mls Insulin Detemir 20 units/ (Miscellaneous Medication) 0.2 mls @ 0 mls/hr SC HS [facility] Insulin Detemir 20 units/ (Miscellaneous Medication) 0.2 mls @ 0 mls/hr SC QAM [facility] Last Admin: 06/07/17 08:09 Dose: 0.2 mls Insulin Human Regular (Humulin R) 0 units SC .MODERATE SLIDING SC PRN PRN Reason: Moderate Correctional Scale Last Admin: 06/07/17 06:02 Dose: 4 unit Insulin Human Regular (Humulin R) 0 units SC .BEDTIME SLIDING SC PRN PRN Reason: Bedtime Correctional Scale Last Admin: 06/06/17 21:27 Dose: 3 unit Loperamide HCl (Imodium) 2 mg PO PRN PRN PRN Reason: Diarrhea/Loose Stools Loratadine (Claritin) 10 mg PO DAILYPRN PRN PRN Reason: Sinus Symptoms Lorazepam (Ativan) 1 mg PO Q4H PRN PRN Reason: Anxiety/Agitation Magnesium Hydroxide (Milk Of Magnesium) 30 ml PO DAILYPRN PRN PRN Reason: Constipation Metoprolol Tartrate (Lopressor) 50 mg PO BID [facility] Last Admin: 06/07/17 08:07 Dose: 50 mg Mineral Oil/White Petrolatum (Eucerin Cream) 0 gm TOP BIDPRN PRN PRN Reason: Dry Skin Nitroglycerin (Nitrostat) 0.4 mg SL Q5MIN PRN PRN Reason: Chest Pain Ondansetron HCl (Zofran) 4 mg IVP Q6H PRN PRN Reason: Nausea/Vomiting Ondansetron HCl (Zofran Odt) 4 mg PO Q6H PRN PRN Reason: Nausea/Vomiting Phenol (Chloraseptic [place] 180 Ml Bot) 0 ml PO PRN PRN PRN Reason: Sore Throat Senna (Senokot) 2 tab PO HSPRN PRN PRN Reason: Constipation Sodium Chloride (Flush - Normal Saline) 10 ml IVF Q12HR [facility] Last Admin: 06/06/17 20:41 Dose: Not Given Sodium Chloride (Flush - Normal Saline) 10 ml IVF PRN PRN PRN Reason: Saline Flush Tramadol HCl (Ultram) 50 mg PO Q4H PRN PRN Reason: Moderate Pain (4-6) Trazodone HCl (Desyrel) 50 mg PO HSPRN PRN PRN Reason: Insomnia
--- NOTE | 2017-06-07 11:20 | PRG ---
DATE OF SERVICE: 06/07/2017 SUBJECTIVE: Patient was seen and examined at bedside and overnight events noted. Patient denies any shortness of breath or chest pain or palpitation. No history of nausea or vomiting or diarrhea or f ever or chills or cramps. OBJECTIVE: GENERAL: This is an obese male in no apparent distress. VITAL SIGNS: Temperature 97.1, pulse 80, respirations 16, blood pressure 179/81. HEENT: Atraumatic, normocephalic. Oral mucosa is moist. NECK: Supple. CARDIOVASCULAR: S1, S2 heard. Rate and rhythm regular. RESPIRATORY: Clear to auscultation. GASTROINTESTINAL: Abdomen is soft. MUSCULOSKELETAL: No tenderness. No edema. DERMATOLOGIC: No skin rash. NEUROLOGIC: Alert and awake and oriented x3. No focal neurologic deficits. Moving all the extremiti es. PSYCHIATRIC: Mood and affect normal. LABORATORY DATA: Not done today. ASSESSMENT AND PLAN: 1. Acute kidney injury/chronic kidney stage IV, we will check labs in the morning. 2. Edema, controlled. 3. Hypertension. 4. Anemia 5. Obesity. Plan is to check labs in the morning. Avoid nephrotoxins.
[2017-06-07] MEDS: Atorvastatin Calcium 40 MG TAB PO SCH (20:00)
[2017-06-08] MEDS: Piperacillin/Tazobactam 2.25 GM in Sodium Chloride 0.9% 100 ML IVPB SCH ×4 (03:22→20:49)
[2017-06-08 05:02] LABS: #Basophils 0.1 thou/uL (0.0-0.2); #Eosinphils 0.5 thou/uL (0.0-0.7); #Lymphocytes 3.5 thou/uL (1.20-3.40); #Monocytes 0.8 thou/uL (0.11-0.59); #Neutrophils 6.8 thou/uL (1.40-6.50); %Basophils 0.9 % (0.0-1.0); %Eosinophils 4.7 % (0.0-10.0); %Lymphocytes 29.6 % (21.0-51.0); %Monocytes 7.1 % (0.0-10.0); %Neutrophils 57.7 % (42.0-75.0); Mean Corpuscular HGB CONC 34.6 g/dL (32.0-36.0); Mean Corpuscular Hemoglobin 30.4 pg (27.0-31.0); Mean Platelet Volume 7.9 fL (7.4-10.4); Platelet Count 319 thou/uL (130-400); RBC Distribution Width 12.2 % (11.5-14.5); Red Blood Cell (RBC) Count 4.61 mill/uL (4.70-6.10); White Blood Cell (WBC) Count 11.7 thou/uL (4.8-10.8)
[2017-06-08 05:13] LABS: Albumin 2.2 g/dL (3.4-4.8); Anion Gap 11 mmol/L (10-20); BUN (Urea Nitrogen) 36 mg/dL (8.4-25.7); BUN/Creatinine Ratio 11.36; CRP (Inflammatory) 0.52 mg/dL (= or < 0.5); Calc. Creatinine Clearance 36 mL/min (70-130); Calcium 7.9 mg/dL (7.8-10.44); Carbon Dioxide 22 mmol/L (23-31); Chloride 107 mmol/L (98-107); Estimated GFR-MDRD 20; Glucose 133 mg/dL (80-115); Phosphorus 3.9 mg/dL (2.3-4.7); Potassium 3.5 mmol/L (3.5-5.1); Sodium 136 mmol/L (136-145)
--- NOTE | 2017-06-08 09:22 | PDOC.PN ---
- Subjective Encounter Start Date: 06/08/17 Encounter Start Time: 08:00 Patient seen and examined. No new complaints. No overnight events - Objective MAR Reviewed: Yes Vital Signs & Weight: Vital Signs (12 hours) Temp Pulse Resp BP Pulse Ox 06/08/17 07:12 97.3 F L 67 16 181/96 H 99 06/08/17 03:00 98 Weight Admit Weight 246 lb 9.6 oz Weight 246 lb 9.6 oz I&O: 06/07/17 06/08/17 06/09/17 05:59 06:59 06:59 Intake Total Output Total Balance Result Diagrams: 06/08/17 04:25 06/08/17 04:25 Additional Labs: Accuchecks 06/08/17 06/07/17 06/07/17 05:31 19:50 16:42 POC Glucose 210 H 312 H 277 H 06/07/17 11:58 POC Glucose 359 H Phys Exam - Physical Examination Constitutional: NAD HEENT: PERRLA, moist MMs, sclera anicteric Neck: no JVD, supple Respiratory: no wheezing, no rales, no rhonchi Cardiovascular: RRR, no significant murmur, no rub Gastrointestinal: soft, non-tender, no distention, positive bowel sounds right leg with dressing, left BKA Neurological: non-focal, normal sensation Lymphatic: no nodes Psychiatric: normal affect, A&O x 3 Skin: no rash, normal turgor Dx/Plan (1) Acute worsening of stage 3 chronic kidney disease Code(s): N18.3 - CHRONIC KIDNEY DISEASE, STAGE 3 (MODERATE) Status: Acute (2) Cellulitis of right lower extremity Code(s): L03.115 - CELLULITIS OF RIGHT LOWER LIMB Status: Acute (3) History of left below knee amputation Code(s): Z89.512 - ACQUIRED ABSENCE OF LEFT LEG BELOW KNEE Status: Acute (4) Infection of left below knee amputation Code(s): T87.44 - INFECTION OF AMPUTATION STUMP, LEFT LOWER EXTREMITY Status: Acute (5) CAD (coronary artery disease) Code(s): I25.10 - ATHSCL HEART DISEASE OF [place] CORONARY ARTERY W/O ANG PCTRS Status: Chronic Qualifiers: (6) DM type 2 (diabetes mellitus, type 2) Status: Chronic Qualifiers: (7) Dyslipidemia Code(s): E78.5 - HYPERLIPIDEMIA, UNSPECIFIED Status: Chronic (8) HTN (hypertension) Code(s): I10 - ESSENTIAL (PRIMARY) HYPERTENSION Status: Chronic Qualifiers: (9) Obesity (BMI 30-39.9) Code(s): E66.9 - OBESITY, UNSPECIFIED Status: Chronic (10) PVD (peripheral vascular disease) Code(s): I73.9 - PERIPHERAL VASCULAR DISEASE, UNSPECIFIED Status: Chronic - Plan cont current plan of care, continue antibiotics * renal function now appear to be now baseline * will check phos, PTH * send UA, urine sodium, creatinine and protein * wound care * medication reviewed as below * symptomatic treatment * continue IV antibiotics * repeat labs tomorrow * nephrology following. * continue gentle ivf Review of Systems - Review of Systems Constitutional: negative: fever, chills, sweats, weakness, malaise, other Eyes: negative: Pain, Vision Change, Conjunctivae Inflammation, Eyelid Inflammation, Redness, Other ENT: negative: Ear Pain, Ear Discharge, Nose Pain, Nose Discharge, Nose Congestion, Mouth Pain, Mouth Swelling, Throat Pain, Throat Swelling, Other Respiratory: negative: Cough, Dry, Shortness of Breath, Hemoptysis, SOB with Excertion, Pleuritic Pain, Sputum, Wheezing Cardiovascular: negative: chest pain, palpitations, orthopnea, paroxysmal nocturnal dyspnea, edema, light headedness, other Gastrointestinal: negative: Nausea, Vomiting, Abdominal Pain, Diarrhea, Constipation, Melena, Hematochezia, Other Genitourinary: negative: Dysuria, Frequency, Incontinence, Hematuria, Retention , Other Musculoskeletal: negative: Neck Pain, Shoulder Pain, Arm Pain, Back Pain, Hand Pain, Leg Pain, Foot Pain, Other Skin: negative: Rash, Lesions, Rajan, Bruising, Other - Medications/Allergies Allergies/Adverse Reactions: Allergies Allergy/AdvReac Type Severity Reaction Status Date / Time No Known Drug Allergies Allergy Verified 12/02/12 22:01 Medications: Current Medications Acetaminophen (Tylenol) 650 mg PO Q4H PRN PRN Reason: Headache/Fever or Mild Pain Hydrocodone Bitart/Acetaminophen ([place] 5/325) 1 tab PO Q4H PRN PRN Reason: Moderate Pain (4-6) Al Hydroxide/Mg Hydroxide (Maalox) 30 ml PO Q6H PRN PRN Reason: Heartburn or Indigestion Amlodipine Besylate (Norvasc) 5 mg PO BID [facility] Last Admin: 06/07/17 20:00 Dose: 5 mg Artificial Tears (Tears Naturale) 0 drop EA EYE PRN PRN PRN Reason: Dry Eyes Atorvastatin Calcium (Lipitor) 40 mg PO [facility] Last Admin: 06/07/17 20:00 Dose: 40 mg Benzonatate (Tessalon) 100 mg PO Q4H PRN PRN Reason: Cough Bisacodyl (Dulcolax) 10 mg PO DAILYPRN PRN PRN Reason: Constipation Calcium Carbonate (Tums) 1,000 mg PO Q4H PRN PRN Reason: Heartburn or Indigestion Clonidine (Catapres) 0.1 mg PO Q4H PRN PRN Reason: Systolic BP > 160 Collagenase (Santyl 250 Units/Gram Ointment) 0 gm TOP DAILY [facility] Dextrose/Water (Dextrose 50%) 25 gm SLOW IVP PRN PRN PRN Reason: Hypoglycemia Famotidine (Pepcid) 20 mg PO DAILY [facility] Last Admin: 06/07/17 08:07 Dose: 20 mg Glucagon (Glucagon) 1 mg IM PRN PRN PRN Reason: Hypoglycemia Guaifenesin (Robitussin Sf) 200 mg PO Q4H PRN PRN Reason: Cough Heparin Sodium (Porcine) (Heparin) 5,000 units SC BID [facility] Last Admin: 06/07/17 20:01 Dose: 5,000 units Hydralazine HCl (Apresoline) 10 mg SLOW IVP Q4H PRN PRN Reason: sbp>170 Last Admin: 06/07/17 02:14 Dose: 10 mg Dextrose/Water (D5w) 1,000 mls @ 0 mls/hr IV .Q0M PRN; As Directed PRN Reason: Hypoglycemia Insulin Detemir 20 units/ (Miscellaneous Medication) 0.2 mls @ 0 mls/hr SC [facility] Last Admin: 06/07/17 20:01 Dose: 0.2 mls Insulin Detemir 20 units/ (Miscellaneous Medication) 0.2 mls @ 0 mls/hr SC QAM [facility] Last Admin: 06/07/17 08:09 Dose: 0.2 mls Sodium Chloride (Normal Saline 0.9%) 1,000 mls @ 50 mls/hr IV .Q20H [facility] Last Admin: 06/07/17 14:39 Dose: 1,000 mls Piperacillin Sod/Tazobactam (Sod 2.25 gm/ Sodium Chloride) 100 mls @ 200 mls/ hr IVPB 0200,0800,1400,2000 [facility] Last Admin: 06/08/17 03:22 Dose: 100 mls Insulin Human Regular (Humulin R) 0 units SC .MODERATE SLIDING SC PRN PRN Reason: Moderate Correctional Scale Last Admin: 06/07/17 13:12 Dose: 10 unit Insulin Human Regular (Humulin R) 0 units SC .BEDTIME SLIDING SC PRN PRN Reason: Bedtime Correctional Scale Last Admin: 06/07/17 20:02 Dose: 4 unit Loperamide HCl (Imodium) 2 mg PO PRN PRN PRN Reason: Diarrhea/Loose Stools Loratadine (Claritin) 10 mg PO DAILYPRN PRN PRN Reason: Sinus Symptoms Lorazepam (Ativan) 1 mg PO Q4H PRN PRN Reason: Anxiety/Agitation Magnesium Hydroxide (Milk Of Magnesium) 30 ml PO DAILYPRN PRN PRN Reason: Constipation Metoprolol Tartrate (Lopressor) 50 mg PO BID [facility] Last Admin: 06/07/17 20:00 Dose: 50 mg Mineral Oil/White Petrolatum (Eucerin Cream) 0 gm TOP BIDPRN PRN PRN Reason: Dry Skin Nitroglycerin (Nitrostat) 0.4 mg SL Q5MIN PRN PRN Reason: Chest Pain Ondansetron HCl (Zofran) 4 mg IVP Q6H PRN PRN Reason: Nausea/Vomiting Ondansetron HCl (Zofran Odt) 4 mg PO Q6H PRN PRN Reason: Nausea/Vomiting Phenol (Chloraseptic [place] 180 Ml Bot) 0 ml PO PRN PRN PRN Reason: Sore Throat Senna (Senokot) 2 tab PO HSPRN PRN PRN Reason: Constipation Sodium Chloride (Flush - Normal Saline) 10 ml IVF Q12HR [facility] Last Admin: 06/07/17 20:08 Dose: Not Given Sodium Chloride (Flush - Normal Saline) 10 ml IVF PRN PRN PRN Reason: Saline Flush Tramadol HCl (Ultram) 50 mg PO Q4H PRN PRN Reason: Moderate Pain (4-6) Trazodone HCl (Desyrel) 50 mg PO HSPRN PRN PRN Reason: Insomnia
[2017-06-08] MEDS: Heparin 5,000 UNITS/ML VIAL SC SCH ×2 (10:02→20:53)
[2017-06-08] MEDS: Amlodipine 5 MG TAB PO SCH ×2 (10:03→20:53)
[2017-06-08] MEDS: Metoprolol Tartrate 50 MG TAB PO SCH ×2 (10:03→20:53)
[2017-06-08] MEDS: Famotidine 20 MG TAB PO SCH (10:04)
[2017-06-08] MEDS: Insulin Detemir 100 UNITS/ML 20 UNITS in Pre-Filled Syringe 1 EACH SC SCH ×2 (10:05→20:49)
[2017-06-08] MEDS: Sodium Chloride 0.9% 1,000 ML IV SCH (10:06)
[2017-06-08 10:37] LABS: Bilirubin Negative (Negative); Blood, Urine Trace (Negative); Clarity CLEAR (Clear); Glucose, Urine (Dipstick) 250 mg/dL (Negative); Leukocyte Negative (Negative); Nitrite Negative (Negative); Protein, Urine (Dipstick) > or equal to 300 mg/dL (Neg-Trace); Specific Gravity, Urine 1.023 (1.002-1.036); Urobilinogen 0.2 mg/dL (0.2-1.0); pH, Urine 6.5 (5.0-9.0)
[2017-06-08 10:39] LABS: Bacteria/HPF None Seen HPF (None Seen); Hyaline Casts/LPF 0-3 HYALINE CAST LPF (0-3 Hyaline); Pathc Cast-AUWi Flag 0.13 (0-2.49)
[2017-06-08 10:56] LABS: Creatinine, Urine 88.58 mg/dL (63-166)
[2017-06-08 10:59] LABS: Transitional Epithelial 0-3 HPF (0-3)
[2017-06-08] MEDS: Collagenase 250 UNITS/GM Ointment 30 GM TUBE TOP SCH (12:30)
[2017-06-08] MEDS: Insulin Regular 300 UNITS/3 ML VIAL SC PRN ×2 (12:32→20:52)
--- NOTE | 2017-06-08 12:52 | PRG ---
DATE OF SERVICE: 06/08/2017 SUBJECTIVE: Patient was seen and examined at bedside and overnight events noted. Patient denies any shortness of breath or chest pain or palpitation. No history of nausea or vomiting or diarrhea or f ever or chills or cramps. OBJECTIVE: GENERAL: This is an obese male in no apparent distress. VITAL SIGNS: Temperature is 97.3, pulse 87, respiratory rate 18 and blood pressure 181/96. HEENT: Atraumatic, normocephalic. Oral mucosa is moist. NECK: Supple. CARDIOVASCULAR: S1, S2 heard. Rate and rhythm regular. RESPIRATORY: Clear to auscultation. GASTROINTESTINAL: Abdomen is soft. MUSCULOSKELETAL: No tenderness. No edema. DERMATOLOGIC: No skin rash. NEUROLOGIC: Alert and awake and oriented x3. No focal neurologic deficits. Moving all the extremit ies. PSYCHIATRIC: Mood and affect normal. LABORATORY DATA: Potassium is 3.5, BUN is 36 and creatinine is 3.1. ASSESSMENT AND PLAN: 1. Acute kidney injury on chronic kidney disease stage IV stable. We will stop IV fluids. Patient is slightly puffy. 2. Edema, controlled. 3. Hypertension. 4. Anemia. 5. Obesity. 6. Avoid nephrotoxins, monitor renal function. No acute indication for dialysis.
--- NOTE | 2017-06-08 15:26 | PRG ---
DATE OF SERVICE: 06/08/2017 SUBJECTIVE: The patient is feeling well. No headaches, a little bit of diarrhea, no respiratory sym ptoms. The patient has less pain in the right lower extremity. OBJECTIVE: VITAL SIGNS: Normal. He is afebrile. LUNGS: Clear. HEART: S1, S2, regular rate. ABDOMEN: Soft. EXTREMITIES: The right lower extremity area has not been undressed today. 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 DISCUSSION: The patient to continue on current regimen and then transition to oral Augmentin for dis charge planning. He needs to follow up with his prosthetic. I advised her to readjust the feeding s ock for the left stump to avoid blistering.
[2017-06-08] MEDS: Atorvastatin Calcium 40 MG TAB PO SCH (20:53)
[2017-06-09] MEDS: Piperacillin/Tazobactam 2.25 GM in Sodium Chloride 0.9% 100 ML IVPB SCH ×4 (03:14→20:09)
[2017-06-09 05:16] LABS: #Basophils 0.1 thou/uL (0.0-0.2); #Eosinphils 0.6 thou/uL (0.0-0.7); #Lymphocytes 3.5 thou/uL (1.20-3.40); #Monocytes 0.8 thou/uL (0.11-0.59); #Neutrophils 6.1 thou/uL (1.40-6.50); %Eosinophils 5.2 % (0.0-10.0); %Lymphocytes 31.3 % (21.0-51.0); %Neutrophils 55.5 % (42.0-75.0); Mean Corpuscular HGB CONC 33.4 g/dL (32.0-36.0); Mean Corpuscular Hemoglobin 29.5 pg (27.0-31.0); Mean Corpuscular Volume 88.2 fl (80.0-94.0); Mean Platelet Volume 7.8 fL (7.4-10.4); Platelet Count 326 thou/uL (130-400); RBC Distribution Width 12.1 % (11.5-14.5); Red Blood Cell (RBC) Count 4.75 mill/uL (4.70-6.10); White Blood Cell (WBC) Count 11.1 thou/uL (4.8-10.8)
[2017-06-09 05:31] LABS: Albumin 2.4 g/dL (3.4-4.8); Anion Gap 11 mmol/L (10-20); BUN (Urea Nitrogen) 35 mg/dL (8.4-25.7); BUN/Creatinine Ratio 9.94; Calc. Creatinine Clearance 32 mL/min (70-130); Calcium 8.3 mg/dL (7.8-10.44); Carbon Dioxide 23 mmol/L (23-31); Chloride 107 mmol/L (98-107); Estimated GFR-MDRD 17; Glucose 147 mg/dL (80-115); Phosphorus 4.1 mg/dL (2.3-4.7); Potassium 3.3 mmol/L (3.5-5.1); Sodium 138 mmol/L (136-145)
[2017-06-09] MEDS: Amlodipine 5 MG TAB PO SCH ×2 (08:00→20:10)
[2017-06-09] MEDS: Famotidine 20 MG TAB PO SCH (08:01)
[2017-06-09] MEDS: Metoprolol Tartrate 50 MG TAB PO SCH ×2 (08:01→20:10)
[2017-06-09] MEDS: Insulin Detemir 100 UNITS/ML 20 UNITS in Pre-Filled Syringe 1 EACH SC SCH ×2 (08:01→20:11)
[2017-06-09] MEDS: Heparin 5,000 UNITS/ML VIAL SC SCH ×2 (08:02→20:11)
[2017-06-09] MEDS: Collagenase 250 UNITS/GM Ointment 30 GM TUBE TOP SCH (08:04)
--- NOTE | 2017-06-09 09:53 | PDOC.PN ---
- Subjective Encounter Start Date: 06/09/17 Encounter Start Time: 08:30 Patient seen and examined. No new complaints. No overnight events - Objective MAR Reviewed: Yes Vital Signs & Weight: Vital Signs (12 hours) Temp Pulse Resp BP BP Pulse Ox 06/09/17 08:00 97.5 F L 68 20 149/82 H 178/83 H 100 Weight Admit Weight 246 lb 9.6 oz Weight 246 lb 9.6 oz I&O: 06/08/17 06/09/17 06/10/17 06:59 06:59 06:59 Intake Total 100 Output Total Balance 100 Result Diagrams: 06/09/17 04:29 06/09/17 04:29 Additional Labs: Accuchecks 06/09/17 06/08/17 06/08/17 05:15 20:50 16:58 POC Glucose 131 H 241 H 164 H 06/08/17 11:32 POC Glucose 279 H Phys Exam - Physical Examination Constitutional: NAD HEENT: PERRLA, moist MMs, sclera anicteric Neck: no JVD, supple Respiratory: no wheezing, no rales, no rhonchi Cardiovascular: RRR, no significant murmur, no rub Gastrointestinal: soft, non-tender, no distention, positive bowel sounds Musculoskeletal: pulses present, edema present left bka Neurological: non-focal, normal sensation Lymphatic: no nodes Psychiatric: normal affect, A&O x 3 Skin: no rash, normal turgor Dx/Plan (1) Acute worsening of stage 3 chronic kidney disease Code(s): N18.3 - CHRONIC KIDNEY DISEASE, STAGE 3 (MODERATE) Status: Acute (2) Cellulitis of right lower extremity Code(s): L03.115 - CELLULITIS OF RIGHT LOWER LIMB Status: Acute (3) History of left below knee amputation Code(s): Z89.512 - ACQUIRED ABSENCE OF LEFT LEG BELOW KNEE Status: Acute (4) Infection of left below knee amputation Code(s): T87.44 - INFECTION OF AMPUTATION STUMP, LEFT LOWER EXTREMITY Status: Acute (5) CAD (coronary artery disease) Code(s): I25.10 - ATHSCL HEART DISEASE OF [place] CORONARY ARTERY W/O ANG PCTRS Status: Chronic Qualifiers: (6) DM type 2 (diabetes mellitus, type 2) Status: Chronic Qualifiers: (7) Dyslipidemia Code(s): E78.5 - HYPERLIPIDEMIA, UNSPECIFIED Status: Chronic (8) HTN (hypertension) Code(s): I10 - ESSENTIAL (PRIMARY) HYPERTENSION Status: Chronic Qualifiers: (9) Obesity (BMI 30-39.9) Code(s): E66.9 - OBESITY, UNSPECIFIED Status: Chronic (10) PVD (peripheral vascular disease) Code(s): I73.9 - PERIPHERAL VASCULAR DISEASE, UNSPECIFIED Status: Chronic - Plan cont current plan of care, continue antibiotics * change to augmentin * DC home * medication reviewed as below * symptomatic treatment * see discharge summery. Review of Systems - Review of Systems ENT: negative: Ear Pain, Ear Discharge, Nose Pain, Nose Discharge, Nose Congestion, Mouth Pain, Mouth Swelling, Throat Pain, Throat Swelling, Other Respiratory: negative: Cough, Dry, Shortness of Breath, Hemoptysis, SOB with Excertion, Pleuritic Pain, Sputum, Wheezing Cardiovascular: negative: chest pain, palpitations, orthopnea, paroxysmal nocturnal dyspnea, edema, light headedness, other Gastrointestinal: negative: Nausea, Vomiting, Abdominal Pain, Diarrhea, Constipation, Melena, Hematochezia, Other Genitourinary: negative: Dysuria, Frequency, Incontinence, Hematuria, Retention , Other Musculoskeletal: negative: Neck Pain, Shoulder Pain, Arm Pain, Back Pain, Hand Pain, Leg Pain, Foot Pain, Other Skin: negative: Rash, Lesions, Rajan, Bruising, Other - Medications/Allergies Allergies/Adverse Reactions: Allergies Allergy/AdvReac Type Severity Reaction Status Date / Time No Known Drug Allergies Allergy Verified 12/02/12 22:01 Medications: Current Medications Acetaminophen (Tylenol) 650 mg PO Q4H PRN PRN Reason: Headache/Fever or Mild Pain Hydrocodone Bitart/Acetaminophen ([place] 5/325) 1 tab PO Q4H PRN PRN Reason: Moderate Pain (4-6) Al Hydroxide/Mg Hydroxide (Maalox) 30 ml PO Q6H PRN PRN Reason: Heartburn or Indigestion Amlodipine Besylate (Norvasc) 5 mg PO BID [facility] Last Admin: 06/09/17 08:00 Dose: 5 mg Artificial Tears (Tears Naturale) 0 drop EA EYE PRN PRN PRN Reason: Dry Eyes Atorvastatin Calcium (Lipitor) 40 mg PO [facility] Last Admin: 06/08/17 20:53 Dose: 40 mg Benzonatate (Tessalon) 100 mg PO Q4H PRN PRN Reason: Cough Bisacodyl (Dulcolax) 10 mg PO DAILYPRN PRN PRN Reason: Constipation Calcium Carbonate (Tums) 1,000 mg PO Q4H PRN PRN Reason: Heartburn or Indigestion Clonidine (Catapres) 0.1 mg PO Q4H PRN PRN Reason: Systolic BP > 160 Collagenase (Santyl 250 Units/Gram Ointment) 0 gm TOP DAILY [facility] Last Admin: 06/09/17 08:04 Dose: 1 applic Dextrose/Water (Dextrose 50%) 25 gm SLOW IVP PRN PRN PRN Reason: Hypoglycemia Famotidine (Pepcid) 20 mg PO DAILY [facility] Last Admin: 06/09/17 08:01 Dose: 20 mg Glucagon (Glucagon) 1 mg IM PRN PRN PRN Reason: Hypoglycemia Guaifenesin (Robitussin Sf) 200 mg PO Q4H PRN PRN Reason: Cough Heparin Sodium (Porcine) (Heparin) 5,000 units SC BID [facility] Last Admin: 06/09/17 08:02 Dose: 5,000 units Hydralazine HCl (Apresoline) 10 mg SLOW IVP Q4H PRN PRN Reason: sbp>170 Last Admin: 06/07/17 02:14 Dose: 10 mg Dextrose/Water (D5w) 1,000 mls @ 0 mls/hr IV .Q0M PRN; As Directed PRN Reason: Hypoglycemia Insulin Detemir 20 units/ (Miscellaneous Medication) 0.2 mls @ 0 mls/hr SC HS [facility] Last Admin: 06/08/17 20:49 Dose: 0.2 mls Insulin Detemir 20 units/ (Miscellaneous Medication) 0.2 mls @ 0 mls/hr SC QAM [facility] Last Admin: 06/09/17 08:01 Dose: 0.2 mls Piperacillin Sod/Tazobactam (Sod 2.25 gm/ Sodium Chloride) 100 mls @ 200 mls/ hr IVPB 0200,0800,1400,2000 [facility] Last Admin: 06/09/17 08:00 Dose: 100 mls Insulin Human Regular (Humulin R) 0 units SC .MODERATE SLIDING SC PRN PRN Reason: Moderate Correctional Scale Last Admin: 06/08/17 20:52 Dose: 4 unit Insulin Human Regular (Humulin R) 0 units SC .BEDTIME SLIDING SC PRN PRN Reason: Bedtime Correctional Scale Last Admin: 06/07/17 20:02 Dose: 4 unit Loperamide HCl (Imodium) 2 mg PO PRN PRN PRN Reason: Diarrhea/Loose Stools Loratadine (Claritin) 10 mg PO DAILYPRN PRN PRN Reason: Sinus Symptoms Lorazepam (Ativan) 1 mg PO Q4H PRN PRN Reason: Anxiety/Agitation Magnesium Hydroxide (Milk Of Magnesium) 30 ml PO DAILYPRN PRN PRN Reason: Constipation Metoprolol Tartrate (Lopressor) 50 mg PO BID [facility] Last Admin: 06/09/17 08:01 Dose: 50 mg Mineral Oil/White Petrolatum (Eucerin Cream) 0 gm TOP BIDPRN PRN PRN Reason: Dry Skin Nitroglycerin (Nitrostat) 0.4 mg SL Q5MIN PRN PRN Reason: Chest Pain Ondansetron HCl (Zofran) 4 mg IVP Q6H PRN PRN Reason: Nausea/Vomiting Ondansetron HCl (Zofran Odt) 4 mg PO Q6H PRN PRN Reason: Nausea/Vomiting Phenol (Chloraseptic [place] 180 Ml Bot) 0 ml PO PRN PRN PRN Reason: Sore Throat Senna (Senokot) 2 tab PO HSPRN PRN PRN Reason: Constipation Sodium Chloride (Flush - Normal Saline) 10 ml IVF Q12HR [facility] Last Admin: 06/09/17 08:01 Dose: 10 ml Sodium Chloride (Flush - Normal Saline) 10 ml IVF PRN PRN PRN Reason: Saline Flush Tramadol HCl (Ultram) 50 mg PO Q4H PRN PRN Reason: Moderate Pain (4-6) Trazodone HCl (Desyrel) 50 mg PO HSPRN PRN PRN Reason: Insomnia
--- NOTE | 2017-06-09 11:14 | PRG ---
DATE OF SERVICE: 06/09/2017 SUBJECTIVE: This is a 66-year-old gentleman being seen for acute kidney injury. The patient denies any nausea or vomiting, but is having diarrhea. PHYSICAL EXAMINATION: GENERAL: Patient is awake, alert. VITAL SIGNS: Afebrile. Pulse 78, breathing at 16, blood pressure 149/82. HEAD/NECK: Normocephalic. Atraumatic. EYES: EOMI. No deformity. EARS: Clear. No ulcers. NOSE: Intact. No lesions. MOUTH: Clear. No discharge. THROAT: Clear. No exudate. LUNGS: Clear. No crackles. CARDIAC: S1, S2. No rub. ABDOMEN: Benign. BS+. GENITALIA/RECTUM: [place] absent. BACK/EXTREMITIES: Edema 0+ Ulcer- NEUROLOGICAL: Alert and motor intact. SKIN: Rash- Bruise- LYMPHATICS: Edema- Ulcer- LABORATORY DATA: Show hemoglobin 14 and creatinine 3.5. ASSESSMENT AND PLAN: 1. Stage 4 chronic kidney disease with acute kidney injury. Continue gentle hydration. 2. Hypoalbuminemia. Recommend increased protein intake. 3. Anemia, stable. 4. Hypokalemia. Recommend high potassium diet. No indication for dialysis. Continue gentle hydrat ion. We will order Clostridium difficile for diarrhea.
[2017-06-09] MEDS: Insulin Regular 300 UNITS/3 ML VIAL SC PRN ×3 (12:39→20:12)
[2017-06-09] MEDS: Loperamide HCl 2 MG CAP PO PRN ×2 (18:43→21:35)
[2017-06-09] MEDS: Atorvastatin Calcium 40 MG TAB PO SCH (20:10)
[2017-06-09] MEDS: hydrALAZINE 20 MG/ML VIAL SLOW IVP PRN (20:25)
[2017-06-10] MEDS: Piperacillin/Tazobactam 2.25 GM in Sodium Chloride 0.9% 100 ML IVPB SCH ×2 (01:10→09:34)
[2017-06-10 05:06] LABS: Anion Gap 14 mmol/L (10-20); BUN (Urea Nitrogen) 32 mg/dL (8.4-25.7); Calc. Creatinine Clearance 34 mL/min (70-130); Calcium 8.1 mg/dL (7.8-10.44); Carbon Dioxide 17 mmol/L (23-31); Chloride 110 mmol/L (98-107); Estimated GFR-MDRD 18; Glucose 127 mg/dL (80-115); Potassium 3.6 mmol/L (3.5-5.1); Sodium 137 mmol/L (136-145)
[2017-06-10 08:42] VITALS: BP 176/79; TEMP 97.2
--- NOTE | 2017-06-10 09:24 | PDOC.PN ---
- Subjective Encounter Start Date: 06/10/17 Encounter Start Time: 08:50 Patient seen and examined. No new complaints. No overnight events - Objective MAR Reviewed: Yes Vital Signs & Weight: Vital Signs (12 hours) Temp Pulse Resp BP BP Pulse Ox 06/10/17 08:00 97.2 F L 71 22 H 176/79 H 100 06/10/17 04:00 97.6 F 62 20 172/89 H 100 06/10/17 00:00 97.9 F 84 20 141/72 H 97 Weight Admit Weight 246 lb 9.6 oz Weight 246 lb 9.6 oz I&O: 06/09/17 06/10/17 06/11/17 06:59 06:59 06:59 Intake Total 100 730 Balance 100 730 Result Diagrams: 06/09/17 04:29 06/10/17 04:31 Additional Labs: Accuchecks 06/10/17 06/09/17 06/09/17 05:08 19:49 16:42 POC Glucose 118 H 323 H 228 H 06/09/17 11:14 POC Glucose 231 H Phys Exam - Physical Examination Constitutional: NAD HEENT: PERRLA, moist MMs, sclera anicteric Neck: no JVD, supple Respiratory: no wheezing, no rales, no rhonchi Cardiovascular: RRR, no significant murmur, no rub Gastrointestinal: soft, non-tender, no distention, positive bowel sounds Musculoskeletal: no edema, pulses present left bka Neurological: non-focal, normal sensation, moves all 4 limbs Psychiatric: normal affect, A&O x 3 Skin: no rash, normal turgor Dx/Plan (1) Acute worsening of stage 3 chronic kidney disease Code(s): N18.3 - CHRONIC KIDNEY DISEASE, STAGE 3 (MODERATE) Status: Acute (2) Cellulitis of right lower extremity Code(s): L03.115 - CELLULITIS OF RIGHT LOWER LIMB Status: Acute (3) History of left below knee amputation Code(s): Z89.512 - ACQUIRED ABSENCE OF LEFT LEG BELOW KNEE Status: Acute (4) Infection of left below knee amputation Code(s): T87.44 - INFECTION OF AMPUTATION STUMP, LEFT LOWER EXTREMITY Status: Acute (5) CAD (coronary artery disease) Code(s): I25.10 - ATHSCL HEART DISEASE OF [place] CORONARY ARTERY W/O ANG PCTRS Status: Chronic Qualifiers: (6) DM type 2 (diabetes mellitus, type 2) Status: Chronic Qualifiers: (7) Dyslipidemia Code(s): E78.5 - HYPERLIPIDEMIA, UNSPECIFIED Status: Chronic (8) HTN (hypertension) Code(s): I10 - ESSENTIAL (PRIMARY) HYPERTENSION Status: Chronic Qualifiers: (9) Obesity (BMI 30-39.9) Code(s): E66.9 - OBESITY, UNSPECIFIED Status: Chronic (10) PVD (peripheral vascular disease) Code(s): I73.9 - PERIPHERAL VASCULAR DISEASE, UNSPECIFIED Status: Chronic - Plan cont current plan of care, continue antibiotics * medication reviewed as below * symptomatic treatment * stable for discharge * see discharge jean-pierre. Review of Systems - Review of Systems Eyes: negative: Pain, Vision Change, Conjunctivae Inflammation, Eyelid Inflammation, Redness, Other ENT: negative: Ear Pain, Ear Discharge, Nose Pain, Nose Discharge, Nose Congestion, Mouth Pain, Mouth Swelling, Throat Pain, Throat Swelling, Other Respiratory: negative: Cough, Dry, Shortness of Breath, Hemoptysis, SOB with Excertion, Pleuritic Pain, Sputum, Wheezing Cardiovascular: negative: chest pain, palpitations, orthopnea, paroxysmal nocturnal dyspnea, edema, light headedness, other Gastrointestinal: negative: Nausea, Vomiting, Abdominal Pain, Diarrhea, Constipation, Melena, Hematochezia, Other Genitourinary: negative: Dysuria, Frequency, Incontinence, Hematuria, Retention , Other Musculoskeletal: negative: Neck Pain, Shoulder Pain, Arm Pain, Back Pain, Hand Pain, Leg Pain, Foot Pain, Other Skin: negative: Rash, Lesions, Rajan, Bruising, Other - Medications/Allergies Allergies/Adverse Reactions: Allergies Allergy/AdvReac Type Severity Reaction Status Date / Time No Known Drug Allergies Allergy Verified 12/02/12 22:01 Medications: Current Medications Acetaminophen (Tylenol) 650 mg PO Q4H PRN PRN Reason: Headache/Fever or Mild Pain Hydrocodone Bitart/Acetaminophen ([place] 5/325) 1 tab PO Q4H PRN PRN Reason: Moderate Pain (4-6) Al Hydroxide/Mg Hydroxide (Maalox) 30 ml PO Q6H PRN PRN Reason: Heartburn or Indigestion Amlodipine Besylate (Norvasc) 5 mg PO BID STEFANO Last Admin: 06/09/17 20:10 Dose: 5 mg Artificial Tears (Tears Naturale) 0 drop EA EYE PRN PRN PRN Reason: Dry Eyes Atorvastatin Calcium (Lipitor) 40 mg PO [facility] Last Admin: 06/09/17 20:10 Dose: 40 mg Benzonatate (Tessalon) 100 mg PO Q4H PRN PRN Reason: Cough Bisacodyl (Dulcolax) 10 mg PO DAILYPRN PRN PRN Reason: Constipation Calcium Carbonate (Tums) 1,000 mg PO Q4H PRN PRN Reason: Heartburn or Indigestion Clonidine (Catapres) 0.1 mg PO Q4H PRN PRN Reason: Systolic BP > 160 Collagenase (Santyl 250 Units/Gram Ointment) 0 gm TOP DAILY [facility] Last Admin: 06/09/17 08:04 Dose: 1 applic Dextrose/Water (Dextrose 50%) 25 gm SLOW IVP PRN PRN PRN Reason: Hypoglycemia Famotidine (Pepcid) 20 mg PO DAILY [facility] Last Admin: 06/09/17 08:01 Dose: 20 mg Glucagon (Glucagon) 1 mg IM PRN PRN PRN Reason: Hypoglycemia Guaifenesin (Robitussin Sf) 200 mg PO Q4H PRN PRN Reason: Cough Heparin Sodium (Porcine) (Heparin) 5,000 units SC BID [facility] Last Admin: 06/09/17 20:11 Dose: 5,000 units Hydralazine HCl (Apresoline) 10 mg SLOW IVP Q4H PRN PRN Reason: sbp>170 Last Admin: 06/09/17 20:25 Dose: 10 mg Dextrose/Water (D5w) 1,000 mls @ 0 mls/hr IV .Q0M PRN; As Directed PRN Reason: Hypoglycemia Insulin Detemir 20 units/ (Miscellaneous Medication) 0.2 mls @ 0 mls/hr SC HS [facility] Last Admin: 06/09/17 20:11 Dose: 0.2 mls Insulin Detemir 20 units/ (Miscellaneous Medication) 0.2 mls @ 0 mls/hr SC QAM [facility] Last Admin: 06/09/17 08:01 Dose: 0.2 mls Piperacillin Sod/Tazobactam (Sod 2.25 gm/ Sodium Chloride) 100 mls @ 200 mls/ hr IVPB 0200,0800,1400,2000 [facility] Last Admin: 06/10/17 01:10 Dose: 100 mls Insulin Human Regular (Humulin R) 0 units SC .MODERATE SLIDING SC PRN PRN Reason: Moderate Correctional Scale Last Admin: 06/09/17 18:31 Dose: 4 unit Insulin Human Regular (Humulin R) 0 units SC .BEDTIME SLIDING SC PRN PRN Reason: Bedtime Correctional Scale Last Admin: 06/09/17 20:12 Dose: 4 unit Loperamide HCl (Imodium) 2 mg PO PRN PRN PRN Reason: Diarrhea/Loose Stools Last Admin: 06/09/17 21:35 Dose: 2 mg Loratadine (Claritin) 10 mg PO DAILYPRN PRN PRN Reason: Sinus Symptoms Lorazepam (Ativan) 1 mg PO Q4H PRN PRN Reason: Anxiety/Agitation Magnesium Hydroxide (Milk Of Magnesium) 30 ml PO DAILYPRN PRN PRN Reason: Constipation Metoprolol Tartrate (Lopressor) 50 mg PO BID [facility] Last Admin: 06/09/17 20:10 Dose: 50 mg Mineral Oil/White Petrolatum (Eucerin Cream) 0 gm TOP BIDPRN PRN PRN Reason: Dry Skin Nitroglycerin (Nitrostat) 0.4 mg SL Q5MIN PRN PRN Reason: Chest Pain Ondansetron HCl (Zofran) 4 mg IVP Q6H PRN PRN Reason: Nausea/Vomiting Ondansetron HCl (Zofran Odt) 4 mg PO Q6H PRN PRN Reason: Nausea/Vomiting Phenol (Chloraseptic [place] 180 Ml Bot) 0 ml PO PRN PRN PRN Reason: Sore Throat Senna (Senokot) 2 tab PO HSPRN PRN PRN Reason: Constipation Sodium Chloride (Flush - Normal Saline) 10 ml IVF Q12HR [facility] Last Admin: 06/09/17 20:30 Dose: 10 ml Sodium Chloride (Flush - Normal Saline) 10 ml IVF PRN PRN PRN Reason: Saline Flush Tramadol HCl (Ultram) 50 mg PO Q4H PRN PRN Reason: Moderate Pain (4-6) Trazodone HCl (Desyrel) 50 mg PO HSPRN PRN PRN Reason: Insomnia
[2017-06-10] MEDS: Heparin 5,000 UNITS/ML VIAL SC SCH (09:36)
[2017-06-10] MEDS: Metoprolol Tartrate 50 MG TAB PO SCH (09:36)
[2017-06-10] MEDS: Famotidine 20 MG TAB PO SCH (09:36)
[2017-06-10] MEDS: Amlodipine 5 MG TAB PO SCH (09:36)
[2017-06-10] MEDS: Collagenase 250 UNITS/GM Ointment 30 GM TUBE TOP SCH (09:37)
[2017-06-10] MEDS: Insulin Detemir 100 UNITS/ML 20 UNITS in Pre-Filled Syringe 1 EACH SC SCH (09:37)
--- NOTE | 2017-06-10 09:50 | PRG ---
DATE OF SERVICE: 06/10/2017 SUBJECTIVE: This is a 66-year-old gentleman being seen for acute kidney injury. The patient denies any nausea, vomiting, or chest pain. PHYSICAL EXAMINATION: GENERAL: Awake, alert. VITAL SIGNS: Afebrile, pulse 71, breathing 16, blood pressure 141/70. OBJECTIVE: See above. Awake, alert, in no acute distress. GENERAL APPEARANCE AND MENTAL STATUS: Fair. HEAD/NECK: Normocephalic. Atraumatic. EYES: EOMI. No deformity. EARS: Clear. No ulcers. NOSE: Intact. No lesions. MOUTH: Clear. No discharge. THROAT: Clear. No exudate. LUNGS: Clear. No crackles. CARDIAC: S1, S2. No rub. ABDOMEN: Benign. BS+. GENITALIA/RECTUM: Peacock absent. BACK/EXTREMITIES: Edema 0+ Ulcer- NEUROLOGICAL: Alert and motor intact. SKIN: Rash- Bruise- LYMPHATICS: Edema- Ulcer- LABORATORY: Hemoglobin 4.75, creatinine 3.3, potassium 3.6. ASSESSMENT AND RECOMMENDATIONS: 1. Acute kidney injury, stable. 2. Hypertension, stable. 3. Anemia, stable. 4. Medication based on glomerular filtration rate are appropriate. 5. Patient will follow up to see me in 1 week.
--- NOTE | 2017-06-10 10:32 | DIS ---
PRIMARY CARE PHYSICIAN: Dr. Igor Rivera DATE OF ADMISSION: 06/05/2017 DATE OF DISCHARGE: 06/10/2017 DISCHARGE DISPOSITION: Home. PRIMARY DISCHARGE DIAGNOSES: 1. Cellulitis of right lower extremity. 2. Acute on chronic kidney failure, baseline chronic kidney disease stage 3. 3. Infection of the left below knee amputation stump. SECONDARY DISCHARGE DIAGNOSES: Peripheral vascular disease, nephrotic syndrome due to diabetes, obes ity with BMI 35, hypertension, dyslipidemia, diabetes type 2, coronary artery disease, left below kne e amputation status, chronic kidney disease stage 3. PRIMARY PROCEDURE/OPERATION: None. RADIOLOGICAL INVESTIGATION: Knee x-ray, tibia and fibula x-ray, lower extremity ultrasound. SIGNIFICANT LABS: Hemoglobin 14.0, creatinine 3.38. Urinalysis showed proteinuria. DISCHARGE MEDICATIONS: Norvasc 5 mg p.o. b.i.d., Augmentin 250 mg twice daily for 10 days, aspirin 8 1 mg p.o. daily, Lipitor 40 mg p.o. at bedtime, Tums 500 mg p.o. t.i.d., Pepcid 20 mg p.o. daily, Lev trever insulin 20 units subcu in the evening and 80 units subcutaneously in the morning, Lopressor 50 m g p.o. b.i.d., nitroglycerin 0.4 mg sublingual p.r.n., Protonix 40 mg p.o. daily, Florastor 250 mg p. o. daily for 10 days, Santyl topical application as directed. CONTRAINDICATIONS: None. CODE STATUS: FULL CODE. INPATIENT CONSULTANTS: Dr. Shin and Dr. Uriarte were following while in hospital. Dr. Reyna was [facility] while in hospital. Dr. Orellana was following while in hospital. TEST RESULTS PENDING ON DISCHARGE: None. ALLERGIES: No known drug allergy. DISCHARGE PLAN: Post hospital, the patient will follow up with Dr. Orellana, Dr. Shin and Dr. Igor Rivera as instructed. HOSPITAL COURSE: A 66-year-old male with above-mentioned medical problem who was admitted by Dr. Elham grace. Please see her H&P for further details. The patient was having cellulitis of right lower extr emity as well as chronic wound and a stump of left BKA was erythematous, red and tender. The patient was admitted to medical floor. He was treated with IV antibiotic therapy with vancomycin and Zosyn. He also had acute on chronic kidney failure which required a gentle IV fluid. This patient also fo und with nephrotic syndrome secondary to diabetes. Nephrology was following. Dr. Reyna was [facility] as well as Dr. Orellana was following while in hospital. This patient did very well. He had significant improvement in his erythema. He did not require any surgical procedure during this admission. On discharge, we are changing to Augmentin for another 10 days. The patient will follow up with Dr. Uriarte on an outpatient basis as this patient does not need any ashley lysis at this point. The patient is seen and examined at bedside today. Please see my progress note from today for furthe r details.
[2017-06-10 23:10] LABS: Norovirus GI Negative (Negative); Norovirus GII Negative (Negative)
== END 2017-06-10 10:56 | disposition home or self-care (01) | DRG 564 ==
LOC: ERS 15:48 → T4-A 20:58
PROVIDERS: ADMIT Internal Medicine; ATTEND Internal Medicine
DX: T87.44 Infection of amputation stump, left lower extremity (principal); A41.9 Sepsis, unspecified organism; N17.9 Acute kidney failure, unspecified; E11.22 Type 2 diabetes mellitus with diabetic chronic kidney disease; E11.622 Type 2 diabetes mellitus with other skin ulcer; L03.115 Cellulitis of right lower limb; E66.01 Morbid (severe) obesity due to excess calories; L03.116 Cellulitis of left lower limb; N18.4 Chronic kidney disease, stage 4 (severe); L97.819 Non-pressure chronic ulcer of other part of right lower leg with unspecified severity; E88.81 Metabolic syndrome and other insulin resistance; I87.8 Other specified disorders of veins; Z89.512 Acquired absence of left leg below knee; S80.811A Abrasion, right lower leg, initial encounter; Z79.4 Long term (current) use of insulin; Z95.1 Presence of aortocoronary bypass graft; I25.2 Old myocardial infarction; Z89.411 Acquired absence of right great toe; Z89.421 Acquired absence of other right toe(s); Z68.35 Body mass index [BMI] 35.0-35.9, adult; M10.9 Gout, unspecified; I25.10 Atherosclerotic heart disease of native coronary artery without angina pectoris; Z85.828 Personal history of other malignant neoplasm of skin; I12.9 Hypertensive chronic kidney disease with stage 1 through stage 4 chronic kidney disease, or unspecified chronic kidney disease; E11.65 Type 2 diabetes mellitus with hyperglycemia; I16.0 Hypertensive urgency; K21.9 Gastro-esophageal reflux disease without esophagitis; I73.9 Peripheral vascular disease, unspecified; E78.5 Hyperlipidemia, unspecified; E88.09 Other disorders of plasma-protein metabolism, not elsewhere classified; D63.1 Anemia in chronic kidney disease; E87.6 Hypokalemia; Z79.82 Long term (current) use of aspirin; L89.899 Pressure ulcer of other site, unspecified stage
CPT/HCPCS: 36415; 36416; 80048; 80053; 80061; 80069; 81001; 82570; 83630; 83970; 84156; 84300; 84550; 85025; 85652; 86140; 87015; 87045; 87046; 87206; 87324; 87449; 87798; 87899; 93923; 96365; A4216; G8978-GP-CL; G8979-GP-CJ; G8987-GO-CJ; G8988-GO-CI; J0360; J1644; J1815; J2543; J3370; J3490; J7050